=== PATIENT | male | born 1940 | race Caucasian/White ===

== ENCOUNTER 2019-01-08 13:04 | Observation (INO) | payer MEDICARE ==
[~2019-01-08] VITALS: Ht 177.8 cm; Wt 83.9 kg
[2019-01-08] MEDS ORDERED: NITROGLYCERIN SUBLINGUAL 0.4 MG BOTTLE OF 25. SL STA (13:52)
--- NOTE | 2019-01-08 13:53 | EKG ---
[facility] [address] [place] [address] Test Date: 2019-01-08 Test Time: 13:14:03 Pat Name: MATTHEW ROBERTS Department: Room: Gender: M Dike Supervisor: TOMASZ : 1940 Requested By: KINGSLEY WHITTINGTON Order Number: [id number] Reading MD: Measurements Intervals Friendly Rate: 77 P: 52 TN: 174 QRS: -34 QRSD: 82 T: 14 QT: 394 QTc: 448 Interpretive Statements SINUS RHYTHM ATRIAL PREMATURE COMPLEX(ES) ABNORMAL LEFT AXIS DEVIATION QRS(T) CONTOUR ABNORMALITY CONSISTENT WITH ANTEROSEPTAL INFARCT PROBABLY OLD ABNORMAL ECG RI6.01 No previous ECG available for comparison
--- NOTE | 2019-01-08 13:54 | PHYS DOC ---
Past Medical History Past Medical History: CAD, COPD, GERD, High Cholesterol Additional Past Medical Histor: BPH Additional Past Surgical Histo: VALVE REPLACEMENT Alcohol Use: Rarely Drug Use: None Adult General Chief Complaint Chief Complaint: CHEST PAIN HPI HPI Patient is a 78 year old male patient with history of coronary artery disease, COPD and dyslipidemia who presents via EMS with complaining of chest pain. Patient complaining of sudden onset of lower substernal and epigastric pain that started while playing golf about an over prior to arrival to ER as a constant aching pain without radiation and rated his pain 2/10. Patient complaining of chronic shortness of breath without new change and nausea without vomiting. Patient denies palpitation, fever and chills, cough and congestion, dizziness and focal neurodeficit. Patient had 320 deformity of aspirin given by EMS. Review of Systems Review of Systems Constitutional: Denies fever or chills [] Eyes: Denies change in visual acuity, redness, or eye pain [] HENT: Denies nasal congestion or sore throat [] Respiratory: Denies cough, reports shortness of breath [] Cardiovascular: No additional information not addressed in HPI [] GI: Denies abdominal pain, vomiting, bloody stools or diarrhea [] : Denies dysuria or hematuria [] Musculoskeletal: Denies back pain or joint pain [] Integument: Denies rash or skin lesions [] Neurologic: Denies headache, focal weakness or sensory changes [] Endocrine: Denies polyuria or polydipsia [] All other systems were reviewed and found to be within normal limits, except as documented in this note. Current Medications Current Medications Current Medications Medications (Trade) Dose Ordered Sig/[facility] Start Time Stop Time Status Last Admin Dose Admin Nitroglycerin (Nitrostat) 0.4 mg 1X STAT 01/08/19 13:52 01/08/19 14:56 DC Physical Exam Physical Exam Constitutional: Well developed, well nourished, no acute distress, non-toxic appearance. [] HENT: Normocephalic, atraumatic, bilateral external ears normal, oropharynx moist, no oral exudates, nose normal. [] Eyes: PERRLA, EOMI, conjunctiva normal, no discharge. [] Neck: Normal range of motion, no tenderness, supple, no stridor. [] Cardiovascular:Heart rate regular rhythm, no murmur [] Lungs & Thorax: Bilateral breath sounds clear to auscultation [] Abdomen: Bowel sounds normal, soft, no tenderness, no masses, no pulsatile masses. [] Skin: Warm, dry, no erythema, no rash. [] Back: No tenderness, no CVA tenderness. [] Extremities: No tenderness, no cyanosis, no clubbing, ROM intact, no edema. [] Neurologic: Alert and oriented X 3, normal motor function, normal sensory function, no focal deficits noted. [] Psychologic: Affect normal, judgement normal, mood normal. [] Current Patient Data Vital Signs Vital Signs Date Time Temp Pulse Resp B/P (MAP) Pulse Ox O2 Delivery O2 Flow Rate FiO2 01/08/19 13:04 97.7 81 36 161/102 (121) 93 Room Air 97.7 Lab Values Laboratory Tests Test 01/08/19 14:00 White Blood Count 9.0 x10^3/uL (4.0-11.0) Red Blood Count 4.61 x10^6/uL (4.30-5.70) Hemoglobin 15.2 g/dL (13.0-17.5) Hematocrit 44.2 % (39.0-53.0) Mean Corpuscular Volume 96 fL (79-100) Mean Corpuscular Hemoglobin 33 pg (25-35) Mean Corpuscular Hemoglobin Concent 34 g/dL (31-37) Red Cell Distribution Width 13.7 % (11.5-14.5) Platelet Count 159 x10^3/uL (140-400) Neutrophils (%) (Auto) 81 % (31-73) H Lymphocytes (%) (Auto) 10 % (24-48) L Monocytes (%) (Auto) 8 % (0-9) Eosinophils (%) (Auto) 1 % (0-3) Basophils (%) (Auto) 1 % (0-3) Neutrophils # (Auto) 7.3 x10^3/uL (1.8-7.7) Lymphocytes # (Auto) 0.9 x10^3/uL (1.0-4.8) L Monocytes # (Auto) 0.7 x10^3/uL (0.0-1.1) Eosinophils # (Auto) 0.1 x10^3/uL (0.0-0.7) Basophils # (Auto) 0.1 x10^3/uL (0.0-0.2) Prothrombin Time 13.6 SEC (11.7-14.0) Prothrombin Time INR 1.1 (0.8-1.1) Laboratory Tests 01/08/19 14:00 EKG EKG EKG interpreted by me. EKG at 1314 showed normal sinus rhythm at rate of 77 with PVCs, abnormal left axis deviation, normal UT and QT intervals, poor R-wave progress in anteroseptal leads, no acute ST and T-wave elevation. Radiology/Procedures Radiology/Procedures [facility] [address] [place] [address] IMAGING REPORT Signed PATIENT: MATTHEW ROBERTS ACCOUNT: [id number] : 1940 LOCATION: ER AGE: 78 SEX: M EXAM STATUS: REG ER ORD. PHYSICIAN: KINGSLEY WHITTINGTON MD REASON: chest pain PROCEDURE: PORTABLE CHEST 1V EXAM: Chest, single view. HISTORY: Chest pain. COMPARISON: None. FINDINGS: A frontal view of the chest is obtained. There is increased opacity within the lateral right upper and mid thorax which may be due to pleural plaque or pleural parenchymal scarring. The superimposed on chronic coarse interstitial changes. No pleural effusion or pneumothorax is seen. The heart is normal in size. There is evidence of prior cardiac valve surgery. There are calcified granulomas. IMPRESSION: Lateral right upper and mid thorax opacity possibly due to pleural plaque or pleural parenchymal scarring. The superimposed on suspected chronic interstitial changes. Correlate with prior studies to exclude an underlying pleural-based mass or pneumonic infiltrate. Electronically signed by: Nimisha Fairchild MD (01/08/2019 2:16 PM) [facility] DICTATED and SIGNED BY: NIMISHA FAIRCHILD MD DATE: 01/08/19 [id number] [place] [address] IMAGING REPORT Signed PATIENT: MATTHEW ROBERTS ACCOUNT: [id number] : 1940 LOCATION: ER AGE: 78 SEX: M EXAM STATUS: REG ER ORD. PHYSICIAN: KINGSLEY WHITTINGTON MD REASON: epigastric pain PROCEDURE: ABDOMEN LTD EXAM: Abdomen sonogram. HISTORY: Epigastric pain. TECHNIQUE: Sonographic imaging of the abdomen was performed. COMPARISON: None. FINDINGS: The liver is normal in size. No focal hepatic lesion is seen. There is suspected hepatic steatosis. The gallbladder is unremarkable. The common bile duct is normal in caliber. The right kidney is normal in size. There is a single right renal cyst measuring 4.4 cm. There is echogenic right renal parenchyma, possibly due to imaging technique or medical renal disease. The pancreas and inferior vena cava are unremarkable. IMPRESSION: 1. Slightly echogenic liver parenchyma. This may be due to imaging technique or steatosis. 2. Echogenic right kidney, also possibly due to technique or medical renal disease. 3. 4.4 cm right renal cyst. Electronically signed by: Nimisha Fairchild MD (01/08/2019 2:36 PM) [place] [id number] DICTATED and SIGNED BY: NIMISHA FAIRCHILD MD DATE: 01/08/19 1438 Course & Med Decision Making Course & Med Decision Making Pertinent Labs and Imaging studies reviewed. (See chart for details) Evaluation of patient in ER showed 78-year-old male patient with heart score of 6 with complaining of exertional chest and epigastric pain as a mild pain. Patient did not want to have pain medication in ER. Labs was unremarkable. Gallbladder ultrasound was negative. Patient requiring admission for further evaluation and treatment. Discussed with Dr. Ruiz who is in agreement with admission. Discussed findings and plan with patient and family, who acknowledge understanding and agreement. Dragon Disclaimer Dragon Disclaimer This electronic medical record was generated, in whole or in part, using a voice recognition dictation system. Departure Departure Impression: Primary Impression: Acute chest pain Disposition: ADMITTED INPATIENT (at 1432) Admitting Physician: SIOMARA (Dr. Ruiz accepted admission at 1431) Condition: IMPROVED Referrals: CHAD DUBOSE MD (PCP) The HEART Score for CP Pts HEART Score for Chest Pain: HEART Score for Chest Pain Response (Comments) Value History Moderately Suspicious 1 ECG Nonspecific Repolarizatio 1 Age > 65 2 Risk Factors >3 Risk Factors or Hx CAD 2 Troponin < Normal Limit 0 Total 6 Risk Factors: Risk Factors: DM, Current or recent (<one month) smoker, HTN, HLP, family history of CAD, obesity. Risk Scores: Score 0 - 3: 2.5% MACE over next 6 weeks - Discharge Home Score 4 - 6: 20.3% MACE over next 6 weeks - Admit for Clinical Observation Score 7 - 10: 72.7% MACE over next 6 weeks - Early Invasive Strategies KINGSLEY WHITTINGTON MD Jan 08, 2019 13:54
[2019-01-08 14:10] LABS: BASO # 0.1 x10^3/uL (0.0-0.2); BASO % 1 % (0-3); EOS # 0.1 x10^3/uL (0.0-0.7); EOS % 1 % (0-3); HEMATOCRIT 44.2 % (39.0-53.0); HEMOGLOBIN 15.2 g/dL (13.0-17.5); LYMPH # 0.9 x10^3/uL (1.0-4.8); LYMPH % 10 % (24-48); MEAN CORPUSCULAR HEMOGLOBIN 33 pg (25-35); MEAN CORPUSCULAR HGB CONC 34 g/dL (31-37); MEAN CORPUSCULAR VOLUME 96 fL (79-100); MONO # 0.7 x10^3/uL (0.0-1.1); MONO % 8 % (0-9); NEUT # 7.3 x10^3/uL (1.8-7.7); NEUT % 81 % (31-73); PLATELET COUNT 159 x10^3/uL (140-400); RED BLOOD COUNT 4.61 x10^6/uL (4.30-5.70); RED CELL DISTRIBUTION WIDTH 13.7 % (11.5-14.5)
[2019-01-08 14:19] LABS: PROTHROMBIN TIME PATIENT 13.6 SEC (11.7-14.0)
--- NOTE | 2019-01-08 14:19 | RAD ---
EXAM: Chest, single view. HISTORY: Chest pain. COMPARISON: None. FINDINGS: A frontal view of the chest is obtained. There is increased opacity within the lateral right upper and mid thorax which may be due to pleural plaque or pleural parenchymal scarring. The superimposed on chronic coarse interstitial changes. No pleural effusion or pneumothorax is seen. The heart is normal in size. There is evidence of prior cardiac valve surgery. There are calcified granulomas. IMPRESSION: Lateral right upper and mid thorax opacity possibly due to pleural plaque or pleural parenchymal scarring. The superimposed on suspected chronic interstitial changes. Correlate with prior studies to exclude an underlying pleural-based mass or pneumonic infiltrate. Electronically signed by: Nimisha Fulton MD (01/08/2019 2:16 PM) [place] [id number]
--- NOTE | 2019-01-08 14:39 | RAD ---
EXAM: Abdomen sonogram. HISTORY: Epigastric pain. TECHNIQUE: Sonographic imaging of the abdomen was performed. COMPARISON: None. FINDINGS: The liver is normal in size. No focal hepatic lesion is seen. There is suspected hepatic steatosis. The gallbladder is unremarkable. The common bile duct is normal in caliber. The right kidney is normal in size. There is a single right renal cyst measuring 4.4 cm. There is echogenic right renal parenchyma, possibly due to imaging technique or medical renal disease. The pancreas and inferior vena cava are unremarkable. IMPRESSION: 1. Slightly echogenic liver parenchyma. This may be due to imaging technique or steatosis. 2. Echogenic right kidney, also possibly due to technique or medical renal disease. 3. 4.4 cm right renal cyst. Electronically signed by: Nimisha Fulton MD (01/08/2019 2:36 PM) [facility]
[2019-01-08 15:22] LABS: CALCIUM 9.1 mg/dL (8.5-10.1); CREATININE 1.1 mg/dL (0.7-1.3); GFR 64.9; POTASSIUM 3.9 mmol/L (3.5-5.1)
[2019-01-08 15:30] LABS: ALBUMIN 4.2 g/dL (3.4-5.0); MAGNESIUM 1.8 mg/dL (1.8-2.4); TOTAL BILIRUBIN 1.3 mg/dL (0.2-1.0); TOTAL PROTEIN 8.3 g/dL (6.4-8.2)
[2019-01-08 16:00] VITALS: BP 153/108
[2019-01-08] MEDS ORDERED: ALPRAZolam 0.25 MG TABLET PO ONE (16:15)
[2019-01-08] MEDS ORDERED: ALPRAZolam 0.25 MG TABLET PO PRN (16:15)
--- NOTE | 2019-01-08 16:15 | NUR ---
The patient, MATTHEW ROBERTS, 78 y/o, M admitted by MALU MADISON MD, was given written information regarding hospital policies, unit procedures and contact persons. Valuables were checked and kept in room with patient. Pt arrived to unit via gurney from ED. Pt ambulated to bed. Daughter at bedside. Pt on room air, VSS. No complaints of chest pain or SOB at this time. Call light within reach. Will continue to monitor.
--- NOTE | 2019-01-08 16:16 | PDOC1 ---
History and Physical Date of Admission Date of Admission DATE: 01/08/19 TIME: 16:09 Source Source: Chart review, Patient History of Present Illness History of Present Illness Mr. Rodríguez, is a 78 year old male patient admit from ER, brought via EMS with complaining of chest pain. He was on the golf [place] today, and sudden onset of lower substernal and epigastric pain and now a constant aching pain about 4/10 pain does not radiate, but he explains he has felt more agitated since he arrived. Patient complaining of chronic shortness of breath, hx COPD, no change in sputum or dyspnea. Patient denies palpitation, fever and chills, cough and congestion, dizziness and focal neurodeficit. Past Medical History Past Medical History coronary artery disease, COPD and dyslipidemia Cardiovascular: CAD, HTN Pulmonary: COPD Musculoskeletal: low back pain Rheumatologic: No pertinent hx Infectious disease: No pertinent hx Social History Smoke: Quit (20 years ago) ALCOHOL: rare Drugs: None Current Problem List Problem List Problems Medical Problems: (1) Acute chest pain Status: Acute Current Medications Current Medications Current Medications Nitroglycerin (Nitrostat) 0.4 mg 1X STAT SL ; Start 01/08/19 at 13:52; Stop 01/08/19 at 14:56; Status DC Alprazolam (Xanax) 0.25 mg 1X ONCE PO ; Start 01/08/19 at 16:15; Stop 01/08/19 at 16:16; Status UNV Alprazolam (Xanax) 0.25 mg PRN Q8HRS PRN PO ANXIETY / AGITATION; Start 01/08/19 at 16:15; Status UNV Allergies Allergies: Coded Allergies: No Known Drug Allergies (Unverified , 01/08/19) ROS General: No: Chills, Night Sweats, Fatigue, Malaise, Appetite, Other PSYCHOLOGICAL ROS: YES: Anxiety, Irritablity; No: Behavioral Disorder, Concentration difficultie, Decreased libido, Depression, Disorientation, Hallucinations, Hostility, Memory difficulties, Mood Swings, Obsessive thoughts, Other Eyes: No Blurry vision, No Decreased vision, No Double vision, No Dry eyes, No Excessive tearing, No Eye Pain, No Itchy Eyes, No Loss of vision, No Photophobia, No Scotomata, No Uses contacts, No Uses glasses, No Other HEENT: No: Heacaches, Visual Changes, Hearing change, Nasal congestion, Nasal discharge, Oral lesions, Sinus pain, Sore Throat, Epistaxis, Sneezing, Snoring, Tinnitus, Vertigo, Vocal changes, Other Respiratory: No: Cough, Hemoptysis, Orthopnea, Pleuritic Pain, Shortness of breath, SOB with excertion, Sputum Changes, Stridor, Tachypnea, Wheezing, Other Cardiovascular: yes Chest Pain (maybe); No Palpitations, No Orthopnea, No Paroxysmal Noc. Dyspnea, No Edema, No Lt Headedness, No Other Gastrointestinal: Yes Abdominal Pain; No Nausea, No Vomiting, No Diarrhea, No Constipation, No Melena, No Hematochezia, No Other Genitourinary: No Dysuria, No Frequency, No Incontinence, No Hematuria, No Retention, No Discharge, No Urgency, No Pain, No Flank Pain, No Other, No , No , No , No , No , No , No Musculoskeletal: Yes Joint Stiffness; No Gait Disturbance, No Joint Pain, No Joint Swelling, No Muscle Pain, No Muscular Weakness, No Pain In:, No Swelling In:, No Other Neurological: No Behavorial Changes, No Bowel/Bladder ControlChng, No Confusion, No Dizziness, No Gait Disturbance, No Headaches, No Impaired Coord/balance, No Memory Loss, No Numbness/Tingling, No Seizures, No Speech Problems, No Tremors, No Visual Changes, No Weakness, No Other Skin: Yes Dry Skin; No Eczema, No Hair Changes, No Lumps, No Mole Changes, No Mottling, No Nail Changes, No Pruritus, No Rash, No Skin Lesion Changes, No Other, No Acne Physical Exam General: Alert, Oriented X3, Cooperative, mild distress HEENT: Atraumatic, PERRLA, Mucous membr. moist/pink Lungs: Clear to auscultation, Normal air movement Heart: S1S2, no gallops Abdomen: Normal bowel sounds, Soft, No tenderness, No hepatosplenomegaly, No masses Extremities: No clubbing, No edema, Normal pulses Skin: No rashes, No breakdown Neuro: Normal gait, Normal speech, Sensation intact Psych/Mental Status: Mental status NL, Mood NL Vitals Vitals Vital Signs Date Time Temp Pulse Resp B/P (MAP) Pulse Ox O2 Delivery O2 Flow Rate FiO2 01/08/19 13:04 97.7 81 36 161/102 (121) 93 Room Air 97.7 Labs Labs Laboratory Tests Test 01/08/19 14:00 01/08/19 15:00 White Blood Count 9.0 x10^3/uL (4.0-11.0) Red Blood Count 4.61 x10^6/uL (4.30-5.70) Hemoglobin 15.2 g/dL (13.0-17.5) Hematocrit 44.2 % (39.0-53.0) Mean Corpuscular Volume 96 fL (79-100) Mean Corpuscular Hemoglobin 33 pg (25-35) Mean Corpuscular Hemoglobin Concent 34 g/dL (31-37) Red Cell Distribution Width 13.7 % (11.5-14.5) Platelet Count 159 x10^3/uL (140-400) Neutrophils (%) (Auto) 81 % (31-73) Lymphocytes (%) (Auto) 10 % (24-48) Monocytes (%) (Auto) 8 % (0-9) Eosinophils (%) (Auto) 1 % (0-3) Basophils (%) (Auto) 1 % (0-3) Neutrophils # (Auto) 7.3 x10^3/uL (1.8-7.7) Lymphocytes # (Auto) 0.9 x10^3/uL (1.0-4.8) Monocytes # (Auto) 0.7 x10^3/uL (0.0-1.1) Eosinophils # (Auto) 0.1 x10^3/uL (0.0-0.7) Basophils # (Auto) 0.1 x10^3/uL (0.0-0.2) Prothrombin Time 13.6 SEC (11.7-14.0) Prothromb Time International Ratio 1.1 (0.8-1.1) Sodium Level 140 mmol/L (136-145) Potassium Level 3.9 mmol/L (3.5-5.1) Chloride Level 103 mmol/L (98-107) Carbon Dioxide Level 23 mmol/L (21-32) Anion Gap 14 (6-14) Blood Urea Nitrogen 18 mg/dL (8-26) Creatinine 1.1 mg/dL (0.7-1.3) Estimated GFR (Cockcroft-Gault) 64.9 BUN/Creatinine Ratio 16 (6-20) Glucose Level 93 mg/dL (70-99) Calcium Level 9.1 mg/dL (8.5-10.1) Magnesium Level 1.8 mg/dL (1.8-2.4) Total Bilirubin 1.3 mg/dL (0.2-1.0) Aspartate Amino Transf (AST/SGOT) 37 U/L (15-37) Alanine Aminotransferase (ALT/SGPT) 28 U/L (16-63) Alkaline Phosphatase 112 U/L (46-116) Creatine Kinase 505 U/L (39-308) Troponin I Quantitative < 0.017 ng/mL (0.000-0.055) KU-Crx-I-Type Natriuretic Peptide 244 pg/mL (0-449) Total Protein 8.3 g/dL (6.4-8.2) Albumin 4.2 g/dL (3.4-5.0) Albumin/Globulin Ratio 1.0 (1.0-1.7) Lipase 148 U/L (73-393) Laboratory Tests Test 01/08/19 14:00 01/08/19 15:00 White Blood Count 9.0 x10^3/uL (4.0-11.0) Red Blood Count 4.61 x10^6/uL (4.30-5.70) Hemoglobin 15.2 g/dL (13.0-17.5) Hematocrit 44.2 % (39.0-53.0) Mean Corpuscular Volume 96 fL (79-100) Mean Corpuscular Hemoglobin 33 pg (25-35) Mean Corpuscular Hemoglobin Concent 34 g/dL (31-37) Red Cell Distribution Width 13.7 % (11.5-14.5) Platelet Count 159 x10^3/uL (140-400) Neutrophils (%) (Auto) 81 % (31-73) Lymphocytes (%) (Auto) 10 % (24-48) Monocytes (%) (Auto) 8 % (0-9) Eosinophils (%) (Auto) 1 % (0-3) Basophils (%) (Auto) 1 % (0-3) Neutrophils # (Auto) 7.3 x10^3/uL (1.8-7.7) Lymphocytes # (Auto) 0.9 x10^3/uL (1.0-4.8) Monocytes # (Auto) 0.7 x10^3/uL (0.0-1.1) Eosinophils # (Auto) 0.1 x10^3/uL (0.0-0.7) Basophils # (Auto) 0.1 x10^3/uL (0.0-0.2) Prothrombin Time 13.6 SEC (11.7-14.0) Prothromb Time International Ratio 1.1 (0.8-1.1) Sodium Level 140 mmol/L (136-145) Potassium Level 3.9 mmol/L (3.5-5.1) Chloride Level 103 mmol/L (98-107) Carbon Dioxide Level 23 mmol/L (21-32) Anion Gap 14 (6-14) Blood Urea Nitrogen 18 mg/dL (8-26) Creatinine 1.1 mg/dL (0.7-1.3) Estimated GFR (Cockcroft-Gault) 64.9 BUN/Creatinine Ratio 16 (6-20) Glucose Level 93 mg/dL (70-99) Calcium Level 9.1 mg/dL (8.5-10.1) Magnesium Level 1.8 mg/dL (1.8-2.4) Total Bilirubin 1.3 mg/dL (0.2-1.0) Aspartate Amino Transf (AST/SGOT) 37 U/L (15-37) Alanine Aminotransferase (ALT/SGPT) 28 U/L (16-63) Alkaline Phosphatase 112 U/L (46-116) Creatine Kinase 505 U/L (39-308) Troponin I Quantitative < 0.017 ng/mL (0.000-0.055) ZN-Mxf-B-Type Natriuretic Peptide 244 pg/mL (0-449) Total Protein 8.3 g/dL (6.4-8.2) Albumin 4.2 g/dL (3.4-5.0) Albumin/Globulin Ratio 1.0 (1.0-1.7) Lipase 148 U/L (73-393) VTE Prophylaxis Ordered VTE Prophylaxis Devices: No VTE Pharmacological Prophylaxi: Yes Assessment/Plan Assessment/Plan acute abd pain r/o ACS, no EKG change, first troponin neg, 325 aspirin given by EMS abd pain , epigastric, he reports a remote history of "colon spasm" with acute pain 30 years ago, just one time. consult CV and GI he reports high level of anxiety, and has tachypnea without dyspnea. will try low dose xanax COPD, nebs, stable MALU MADISON MD Jan 08, 2019 16:16
[2019-01-08] MEDS ORDERED: ENOXAPARIN 40 MG/0.4 ML SYRINGE. SQ SCH (16:30)
[2019-01-08] MEDS ORDERED: AMLO5TAB10 PO (17:06)
[2019-01-08] MEDS ORDERED: VENTOLIN HFA18 GM INH (17:06)
[2019-01-08] MEDS ORDERED: PANT20TA2 PO (17:06)
[2019-01-08] MEDS ORDERED: CHOL10003 PO (17:06)
[2019-01-08] MEDS ORDERED: PRAV40TA2 PO (17:06)
[2019-01-08] MEDS ORDERED: MONT10TA49 PO (17:06)
[2019-01-08] MEDS ORDERED: FLUT1DIS3 IH (17:06)
[2019-01-08] MEDS ORDERED: CLOP75TA PO (17:06)
[2019-01-08] MEDS ORDERED: TAMS0.4C97 PO (17:06)
[2019-01-08] MEDS ORDERED: ASPI-630 PO (17:06)
[2019-01-08] MEDS ORDERED: ESZO3TAB28 PO (17:06)
[2019-01-08] MEDS ORDERED: ACLI400A3 IH (17:06)
[2019-01-08] MEDS ORDERED: MELO15TA23 PO (17:06)
[2019-01-08] MEDS ORDERED: FINA5TAB4 PO (17:06)
[2019-01-08] MEDS ORDERED: ZOLPIDEM 5 MG TABLET. PO PRN ×2 (18:00)
[2019-01-08] MEDS ORDERED: ALBUTEROL SULFATE 2.5 MG/3 ML NEBU. NEB PRN (18:00)
[2019-01-08 18:58] VITALS: BP 128/83
[2019-01-08] MEDS ORDERED: IPRATRPIUM/ALBUTEROL 0.5/2.5MG 3 ML NEBU. NEB SCH (20:00)
[2019-01-08] MEDS ORDERED: NON FORMULARY ITEM (Albuterol Sulfate (Ventolin Hfa Inhaler) 2 PUFF) INH SCH (20:00)
[2019-01-08] MEDS: BUDESONIDE 0.5 MG/2 ML NEBU. NEB SCH (20:09)
[2019-01-08] MEDS: IPRATRPIUM/ALBUTEROL 0.5/2.5MG 3 ML NEBU. NEB SCH (20:09)
[2019-01-08] MEDS ORDERED: MONTELUKAST SODIUM 10 MG TABLET. PO SCH (21:00)
[2019-01-08] MEDS ORDERED: NON FORMULARY ITEM (Pravastatin Sodium 1 TAB) PO SCH (21:00)
[2019-01-08] MEDS ORDERED: NON FORMULARY ITEM (Fluticasone/Salmeterol (Advair 250-50 Diskus) 1 PUFF) IH SCH (21:00)
[2019-01-08] MEDS ORDERED: ACLIDINIUM BROMIDE IH SCH (21:00)
[2019-01-08] MEDS ORDERED: ATORVASTATIN CALCIUM 10 MG TABLET. PO SCH (21:00)
[2019-01-08] MEDS: TAMSULOSIN 0.4 MG CAP.ER.24H. PO SCH (21:09)
[2019-01-08] MEDS: FINASTERIDE 5 MG TABLET. PO SCH (21:09)
[2019-01-08] MEDS: ASPIRIN CHEWABLE 81 MG TABLET. PO SCH (21:10)
[2019-01-08 23:11] VITALS: BP 125/77
[2019-01-09 03:05] VITALS: BP 118/70
[2019-01-09 04:28] LABS: BASO % 1 % (0-3); EOS # 0.2 x10^3/uL (0.0-0.7); EOS % 4 % (0-3); HEMATOCRIT 40.9 % (39.0-53.0); HEMOGLOBIN 14.2 g/dL (13.0-17.5); LYMPH # 1.6 x10^3/uL (1.0-4.8); LYMPH % 30 % (24-48); MEAN CORPUSCULAR HEMOGLOBIN 33 pg (25-35); MEAN CORPUSCULAR HGB CONC 35 g/dL (31-37); MEAN CORPUSCULAR VOLUME 95 fL (79-100); MONO # 0.7 x10^3/uL (0.0-1.1); MONO % 13 % (0-9); NEUT % 53 % (31-73); PLATELET COUNT 143 x10^3/uL (140-400); RED CELL DISTRIBUTION WIDTH 13.9 % (11.5-14.5); WHITE BLOOD COUNT 5.6 x10^3/uL (4.0-11.0)
[2019-01-09 05:02] LABS: ALBUMIN 3.1 g/dL (3.4-5.0); ALBUMIN/GLOBULIN RATIO 0.8 (1.0-1.7); CALCIUM 8.1 mg/dL (8.5-10.1); CREATININE 1.1 mg/dL (0.7-1.3); GFR 64.9; POTASSIUM 3.9 mmol/L (3.5-5.1); TOTAL BILIRUBIN 0.8 mg/dL (0.2-1.0); TOTAL PROTEIN 6.9 g/dL (6.4-8.2)
[2019-01-09 05:03] LABS: CHOLESTEROL/HDL RATIO 2.9
[2019-01-09 07:00] VITALS: BP 138/78
[2019-01-09] MEDS ORDERED: PANTOPRAZOLE 40 MG TABLET.DR. PO SCH (07:30)
[2019-01-09] MEDS: IPRATRPIUM/ALBUTEROL 0.5/2.5MG 3 ML NEBU. NEB SCH ×2 (07:46→11:03)
[2019-01-09] MEDS: BUDESONIDE 0.5 MG/2 ML NEBU. NEB SCH (07:46)
--- NOTE | 2019-01-09 08:58 | PDOC2 ---
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 Reports that he was at the 15th hold at the [place] playing 4 man scramble and reports that his bad felt bubbly like unsettled then he became nauseated no vomiting. He finished the game and was riding carts for the most part. He went to his car and just did not feel good and was feeling weak and still has some na usea but no vomiting. Reports no chest pain, palpitations, arm or shoulder or jaw discomfort. He did say that he has history of spastic colon. To add he only ate a banana for breakfast because he was in a hurry. Denies any dizziness and no exertional CP nor RIVAS. Reports that he just saw his [facility] any commodity buyer Alissa and told him that he is doing well and his murmur is much better since he had his TAVR 6 months ago. He also had stent placed 03/2018. He has been doing cardiac rehab here and has been tolerating it. He also had a TTE recently but not sure when. No diarrhea, constipation and no fever or chills and no flank pain. PAST MEDICAL HISTORY Cardiovascular: CAD, HTN, Hyperlipidemia Pulmonary: COPD CENTRAL NERVOUS SYSTEM: Other (No pertinent history) GI: GERD, Other (spastic colon) Heme/Onc: No pertinent hx Hepatobiliary: Cholelithiasis Psych: No pertinent hx Musculoskeletal: Osteoarthritis Rheumatologic: No pertinent hx Infectious disease: No pertinent hx ENT: Allergic Rhinitis Renal/: No pertinent hx Endocrine: No pertinent hx Dermatology: No pertinent hx PAST SURGICAL HISTORY Past Surgical History: Cholecystectomy, Other (PCI/stent; TAVR) FAMILY HISTORY Family History noncontributory SOCIAL HISTORY Smoke: Quit (remotely) ALCOHOL: rare Drugs: None Lives: with Family CURRENT MEDICATIONS CURRENT MEDICATIONS Current Medications Medications (Trade) Dose Ordered Sig/Jean Paul Route PRN Reason Start Time Stop Time Status Last Admin Dose Admin Alprazolam (Xanax) 0.25 mg 1X ONCE PO 01/08/19 16:15 01/08/19 16:18 DC 01/08/19 18:18 Montelukast Sodium (Singulair) 10 mg HS PO 01/08/19 21:00 01/08/19 21:09 Pantoprazole Sodium (Protonix) 40 mg DAILYAC PO 01/09/19 07:30 01/09/19 07:58 Zolpidem Tartrate (Ambien) 5 mg PRN QHS PRN PO INSOMNIA 01/08/19 18:00 01/08/19 23:02 Atorvastatin Calcium (Lipitor) 10 mg QHS PO 01/08/19 21:00 01/08/19 21:10 Albuterol/ Ipratropium (Duoneb) 3 ml RTQID NEB 01/08/19 20:00 01/09/19 07:46 Budesonide (Pulmicort) 0.5 mg RTBID NEB 01/08/19 20:00 01/09/19 07:46 Aspirin (Children'S Aspirin) 81 mg DAILY PO 01/08/19 20:00 01/08/19 21:10 Finasteride (Proscar) 5 mg DAILY PO 01/08/19 20:00 01/08/19 21:09 Tamsulosin HCl (Flomax) 0.4 mg DAILY PO 01/08/19 20:00 01/08/19 21:09 ALLERGIES ALLERGIES: Coded Allergies: No Known Drug Allergies (Unverified , 01/08/19) ROS Review of System 14 point ROS evaluated with pertinent positives noted per HPI PHYSICAL EXAM General: Alert, Oriented X3, Cooperative, No acute distress HEENT: Atraumatic, Mucous membr. moist/pink Lungs: Clear to auscultation, Normal air movement Heart: Regular rate (SR), Normal S1, Normal S2, Other (3/6 systolic murmur to THUAN border) Abdomen: Soft, No tenderness Extremities: No cyanosis, Other (trace LE edema) Skin: No breakdown, No significant lesion Neuro: Normal speech, Sensation intact Psych/Mental Status: Mental status NL, Mood NL MUSCULOSKELETAL: Osteoarthritic changes both hands VITALS/I&O VITALS/I&O: Vital Signs Date Time Temp Pulse Resp B/P (MAP) Pulse Ox O2 Delivery O2 Flow Rate FiO2 01/09/19 07:48 93 Room Air 01/09/19 07:00 97.8 73 138/78 (98) 97.8 01/08/19 23:11 20 I & O 01/08/19 01/08/19 01/09/19 15:00 23:00 07:00 Intake Total 400 ml 200 ml Balance 400 ml 200 ml LABS Lab: Laboratory Tests Test 01/08/19 14:00 01/08/19 15:00 01/08/19 18:08 01/08/19 22:35 White Blood Count 9.0 x10^3/uL (4.0-11.0) Red Blood Count 4.61 x10^6/uL (4.30-5.70) Hemoglobin 15.2 g/dL (13.0-17.5) Hematocrit 44.2 % (39.0-53.0) Mean Corpuscular Volume 96 fL (79-100) Mean Corpuscular Hemoglobin 33 pg (25-35) Mean Corpuscular Hemoglobin Concent 34 g/dL (31-37) Red Cell Distribution Width 13.7 % (11.5-14.5) Platelet Count 159 x10^3/uL (140-400) Neutrophils (%) (Auto) 81 % (31-73) H Lymphocytes (%) (Auto) 10 % (24-48) L Monocytes (%) (Auto) 8 % (0-9) Eosinophils (%) (Auto) 1 % (0-3) Basophils (%) (Auto) 1 % (0-3) Neutrophils # (Auto) 7.3 x10^3/uL (1.8-7.7) Lymphocytes # (Auto) 0.9 x10^3/uL (1.0-4.8) L Monocytes # (Auto) 0.7 x10^3/uL (0.0-1.1) Eosinophils # (Auto) 0.1 x10^3/uL (0.0-0.7) Basophils # (Auto) 0.1 x10^3/uL (0.0-0.2) Prothrombin Time 13.6 SEC (11.7-14.0) Prothrombin Time INR 1.1 (0.8-1.1) Sodium Level 140 mmol/L (136-145) Potassium Level 3.9 mmol/L (3.5-5.1) Chloride Level 103 mmol/L (98-107) Carbon Dioxide Level 23 mmol/L (21-32) Anion Gap 14 (6-14) Blood Urea Nitrogen 18 mg/dL (8-26) Creatinine 1.1 mg/dL (0.7-1.3) Estimated GFR (Cockcroft-Gault) 64.9 BUN/Creatinine Ratio 16 (6-20) Glucose Level 93 mg/dL (70-99) Calcium Level 9.1 mg/dL (8.5-10.1) Magnesium Level 1.8 mg/dL (1.8-2.4) Total Bilirubin 1.3 mg/dL (0.2-1.0) H Aspartate Amino Transferase (AST) 37 U/L (15-37) Alanine Aminotransferase (ALT) 28 U/L (16-63) Alkaline Phosphatase 112 U/L (46-116) Creatine Kinase 505 U/L (39-308) H Troponin I Quantitative < 0.017 ng/mL (0.000-0.055) < 0.017 ng/mL (0.000-0.055) < 0.017 ng/mL (0.000-0.055) FV-Llv-Y-Type Natriuretic Peptide 244 pg/mL (0-449) Total Protein 8.3 g/dL (6.4-8.2) H Albumin 4.2 g/dL (3.4-5.0) Albumin/Globulin Ratio 1.0 (1.0-1.7) Lipase 148 U/L (73-393) Test 01/09/19 03:50 White Blood Count 5.6 x10^3/uL (4.0-11.0) Red Blood Count 4.30 x10^6/uL (4.30-5.70) Hemoglobin 14.2 g/dL (13.0-17.5) Hematocrit 40.9 % (39.0-53.0) Mean Corpuscular Volume 95 fL (79-100) Mean Corpuscular Hemoglobin 33 pg (25-35) Mean Corpuscular Hemoglobin Concent 35 g/dL (31-37) Red Cell Distribution Width 13.9 % (11.5-14.5) Platelet Count 143 x10^3/uL (140-400) Neutrophils (%) (Auto) 53 % (31-73) Lymphocytes (%) (Auto) 30 % (24-48) Monocytes (%) (Auto) 13 % (0-9) H Eosinophils (%) (Auto) 4 % (0-3) H Basophils (%) (Auto) 1 % (0-3) Neutrophils # (Auto) 3.0 x10^3/uL (1.8-7.7) Lymphocytes # (Auto) 1.6 x10^3/uL (1.0-4.8) Monocytes # (Auto) 0.7 x10^3/uL (0.0-1.1) Eosinophils # (Auto) 0.2 x10^3/uL (0.0-0.7) Basophils # (Auto) 0.0 x10^3/uL (0.0-0.2) Sodium Level 140 mmol/L (136-145) Potassium Level 3.9 mmol/L (3.5-5.1) Chloride Level 107 mmol/L (98-107) Carbon Dioxide Level 23 mmol/L (21-32) Anion Gap 10 (6-14) Blood Urea Nitrogen 19 mg/dL (8-26) Creatinine 1.1 mg/dL (0.7-1.3) Estimated GFR (Cockcroft-Gault) 64.9 BUN/Creatinine Ratio 17 (6-20) Glucose Level 91 mg/dL (70-99) Calcium Level 8.1 mg/dL (8.5-10.1) L Total Bilirubin 0.8 mg/dL (0.2-1.0) Aspartate Amino Transferase (AST) 27 U/L (15-37) Alanine Aminotransferase (ALT) 19 U/L (16-63) Alkaline Phosphatase 88 U/L (46-116) Total Protein 6.9 g/dL (6.4-8.2) Albumin 3.1 g/dL (3.4-5.0) L Albumin/Globulin Ratio 0.8 (1.0-1.7) L Triglycerides Level 71 mg/dL (0-150) Cholesterol Level 154 mg/dL (0-200) LDL Cholesterol, Calculated 86 mg/dL (0-100) VLDL Cholesterol, Calculated 14 mg/dL (0-40) Non-HDL Cholesterol Calculated 100 mg/dL (0-129) HDL Cholesterol 54 mg/dL (40-60) Cholesterol/HDL Ratio 2.9 Laboratory Tests 01/08/19 14:00 01/09/19 03:50 Laboratory Tests 01/08/19 15:00 01/09/19 03:50 ASSESSMENT/PLAN ASSESSMENT/PLAN 1. Abdominal pain/nausea: hx of spastic colon. Non cardiac 2. CAD; PCI/stent 03/2018. clinically stable. Trops nml no EKG changes 3. HTN: controlled 4. HLP: lipids controlled 5. Post TAVR: 6 months ago. [facility] 6. COPD: stable Recommendations 1. Continue secondary prevention. DAPT. Unclear about not having BB, will defer with [facility] cardiology. Continue amlodipine. 2. Recent TTE per pt, will try to obtain records 3. Still complains of pills getting stuck in his throat. EGD last yr. GI consult 4. Follow up with [facility] cardiology MARCUS STERLING MD 01/09/19 1702: CARDIAC CONSULT ASSESSMENT/PLAN ASSESSMENT/PLAN Patient seen and examined. Agree with above nurse practitioner note. 78-year-old man presented with abdominal pain. No significant cardiac issues. Ok to DC from CV standpoint. f/u with [facility] cardiology. WINSTON PERALES APRN Jan 09, 2019 08:58 MARCUS STERLING MD Jan 09, 2019 17:02
[2019-01-09] MEDS ORDERED: ASPIRIN CHEWABLE 81 MG TABLET. PO SCH (09:00)
[2019-01-09] MEDS ORDERED: amLODIPine BESYLATE 5 MG TABLET PO SCH (09:00)
[2019-01-09] MEDS ORDERED: TAMSULOSIN 0.4 MG CAP.ER.24H. PO SCH ×2 (09:00→21:00)
[2019-01-09] MEDS ORDERED: FINASTERIDE 5 MG TABLET. PO SCH (09:00)
[2019-01-09] MEDS: TAMSULOSIN 0.4 MG CAP.ER.24H. PO SCH (09:00)
[2019-01-09] MEDS ORDERED: CLOPIDOGREL BISULFATE 75 MG TABLET PO SCH (09:00)
[2019-01-09] MEDS ORDERED: MELOXICAM 7.5 MG TABLET PO SCH (09:00)
[2019-01-09] MEDS ORDERED: CHOLECALCIFEROL (VITAMIN D3) 1,000 UNIT TABLET PO SCH (09:00)
--- NOTE | 2019-01-09 09:41 | PDOC2 ---
GI CONSULT Reason For Consult: epigastric pain, h/o colon spasm HPI: HPI: Pleasant 78 y/o male who had some nausea and mid abdominal discomfort ("bubbling") yesterday while playing golf around [place] [employer]. "I couldn't tell if I was going to puke or poop." [place] worse, friends called an ambulance, admitted through ER. Symptoms resolved after two normal stools in ER. Currently feeling well and would like to eat breakfast and go home. Reports previous EGD at [facility] performed for abnormal swallowing - says only finding was GERD and he was started on pantoprazole 40mg QD. Then he had a "swallow test and the lady told me nothing was wrong." Then saw an ENT and was started on a nasal spray which might have helped a little. Plans to follow-up w/ ENT in a couple weeks. Does not have obvious heartburn or reflux. Pills (c apsules) and some solid foods get caught in upper throat - sometimes goes down w/ water, sometimes has to cough out. Does not occur daily. If he drinks water to fast he sometimes has issues getting that down too. No odynophagia. No n/v. No weight loss or change in appetite. No early satiety or bloating. No diarrhea or constipation (had a stool before playing golf too). No hematochezia or melena. No previous colonoscopy - "my doctor said I didn't have to because I was too old." No GB, liver, pancreas, or PUD history. Hepatic steatosis and normal GB on imaging as below. On Plavix, ASA, and Meloxicam. Recalls an incident 30 years ago where he went to the ER doubled over w/ abdominal pain - "they were about to take my gallbladder out but then said it was a colon spasm." PMH: PMH: CAD w/ stent, COPD, LUIS, HLD, BPH, allergic rhinitis AVR, uvulectomy, tonsillectomy, adenoidectomy Social History: Smoke: Quit ALCOHOL: none Drugs: None ROS: GEN: Denies fevers, chills, sweats HEENT: Denies blurred vision, sore throat CV: Denies chest pain RESP: Denies shortness of air, cough GI: Per HPI : Denies hematuria, dysuria ENDO: Denies weight changes NEURO: Denies confusion, dizziness MSK: Denies weakness, joint pain/swelling SKIN: Denies jaundice, pruritus Vitals: Vitals: Vital Signs Date Time Temp Pulse Resp B/P (MAP) Pulse Ox O2 Delivery O2 Flow Rate FiO2 01/09/19 07:48 93 Room Air 01/09/19 07:00 97.8 73 138/78 (98) 97.8 01/08/19 23:11 20 Labs: Labs: Laboratory Tests Test 01/08/19 14:00 01/08/19 15:00 01/08/19 18:08 01/08/19 22:35 White Blood Count 9.0 x10^3/uL (4.0-11.0) Red Blood Count 4.61 x10^6/uL (4.30-5.70) Hemoglobin 15.2 g/dL (13.0-17.5) Hematocrit 44.2 % (39.0-53.0) Mean Corpuscular Volume 96 fL (79-100) Mean Corpuscular Hemoglobin 33 pg (25-35) Mean Corpuscular Hemoglobin Concent 34 g/dL (31-37) Red Cell Distribution Width 13.7 % (11.5-14.5) Platelet Count 159 x10^3/uL (140-400) Neutrophils (%) (Auto) 81 % (31-73) Lymphocytes (%) (Auto) 10 % (24-48) Monocytes (%) (Auto) 8 % (0-9) Eosinophils (%) (Auto) 1 % (0-3) Basophils (%) (Auto) 1 % (0-3) Neutrophils # (Auto) 7.3 x10^3/uL (1.8-7.7) Lymphocytes # (Auto) 0.9 x10^3/uL (1.0-4.8) Monocytes # (Auto) 0.7 x10^3/uL (0.0-1.1) Eosinophils # (Auto) 0.1 x10^3/uL (0.0-0.7) Basophils # (Auto) 0.1 x10^3/uL (0.0-0.2) Prothrombin Time 13.6 SEC (11.7-14.0) Prothromb Time International Ratio 1.1 (0.8-1.1) Sodium Level 140 mmol/L (136-145) Potassium Level 3.9 mmol/L (3.5-5.1) Chloride Level 103 mmol/L (98-107) Carbon Dioxide Level 23 mmol/L (21-32) Anion Gap 14 (6-14) Blood Urea Nitrogen 18 mg/dL (8-26) Creatinine 1.1 mg/dL (0.7-1.3) Estimated GFR (Cockcroft-Gault) 64.9 BUN/Creatinine Ratio 16 (6-20) Glucose Level 93 mg/dL (70-99) Calcium Level 9.1 mg/dL (8.5-10.1) Magnesium Level 1.8 mg/dL (1.8-2.4) Total Bilirubin 1.3 mg/dL (0.2-1.0) Aspartate Amino Transf (AST/SGOT) 37 U/L (15-37) Alanine Aminotransferase (ALT/SGPT) 28 U/L (16-63) Alkaline Phosphatase 112 U/L (46-116) Creatine Kinase 505 U/L (39-308) Troponin I Quantitative < 0.017 ng/mL (0.000-0.055) < 0.017 ng/mL (0.000-0.055) < 0.017 ng/mL (0.000-0.055) QZ-Wea-V-Type Natriuretic Peptide 244 pg/mL (0-449) Total Protein 8.3 g/dL (6.4-8.2) Albumin 4.2 g/dL (3.4-5.0) Albumin/Globulin Ratio 1.0 (1.0-1.7) Lipase 148 U/L (73-393) Test 01/09/19 03:50 White Blood Count 5.6 x10^3/uL (4.0-11.0) Red Blood Count 4.30 x10^6/uL (4.30-5.70) Hemoglobin 14.2 g/dL (13.0-17.5) Hematocrit 40.9 % (39.0-53.0) Mean Corpuscular Volume 95 fL (79-100) Mean Corpuscular Hemoglobin 33 pg (25-35) Mean Corpuscular Hemoglobin Concent 35 g/dL (31-37) Red Cell Distribution Width 13.9 % (11.5-14.5) Platelet Count 143 x10^3/uL (140-400) Neutrophils (%) (Auto) 53 % (31-73) Lymphocytes (%) (Auto) 30 % (24-48) Monocytes (%) (Auto) 13 % (0-9) Eosinophils (%) (Auto) 4 % (0-3) Basophils (%) (Auto) 1 % (0-3) Neutrophils # (Auto) 3.0 x10^3/uL (1.8-7.7) Lymphocytes # (Auto) 1.6 x10^3/uL (1.0-4.8) Monocytes # (Auto) 0.7 x10^3/uL (0.0-1.1) Eosinophils # (Auto) 0.2 x10^3/uL (0.0-0.7) Basophils # (Auto) 0.0 x10^3/uL (0.0-0.2) Sodium Level 140 mmol/L (136-145) Potassium Level 3.9 mmol/L (3.5-5.1) Chloride Level 107 mmol/L (98-107) Carbon Dioxide Level 23 mmol/L (21-32) Anion Gap 10 (6-14) Blood Urea Nitrogen 19 mg/dL (8-26) Creatinine 1.1 mg/dL (0.7-1.3) Estimated GFR (Cockcroft-Gault) 64.9 BUN/Creatinine Ratio 17 (6-20) Glucose Level 91 mg/dL (70-99) Calcium Level 8.1 mg/dL (8.5-10.1) Total Bilirubin 0.8 mg/dL (0.2-1.0) Aspartate Amino Transf (AST/SGOT) 27 U/L (15-37) Alanine Aminotransferase (ALT/SGPT) 19 U/L (16-63) Alkaline Phosphatase 88 U/L (46-116) Total Protein 6.9 g/dL (6.4-8.2) Albumin 3.1 g/dL (3.4-5.0) Albumin/Globulin Ratio 0.8 (1.0-1.7) Triglycerides Level 71 mg/dL (0-150) Cholesterol Level 154 mg/dL (0-200) LDL Cholesterol, Calculated 86 mg/dL (0-100) VLDL Cholesterol, Calculated 14 mg/dL (0-40) Non-HDL Cholesterol Calculated 100 mg/dL (0-129) HDL Cholesterol 54 mg/dL (40-60) Cholesterol/HDL Ratio 2.9 Allergies: Coded Allergies: No Known Drug Allergies (Unverified , 01/08/19) Medications: Current Medications Medications (Trade) Dose Ordered Sig/Jean Paul Route PRN Reason Start Time Stop Time Status Last Admin Dose Admin Alprazolam (Xanax) 0.25 mg 1X ONCE PO 01/08/19 16:15 01/08/19 16:18 DC 01/08/19 18:18 Montelukast Sodium (Singulair) 10 mg HS PO 01/08/19 21:00 01/08/19 21:09 Pantoprazole Sodium (Protonix) 40 mg DAILYAC PO 01/09/19 07:30 01/09/19 07:58 Zolpidem Tartrate (Ambien) 5 mg PRN QHS PRN PO INSOMNIA 01/08/19 18:00 01/08/19 23:02 Atorvastatin Calcium (Lipitor) 10 mg QHS PO 01/08/19 21:00 01/08/19 21:10 Albuterol/ Ipratropium (Duoneb) 3 ml RTQID [facility] 01/08/19 20:00 01/09/19 07:46 Budesonide (Pulmicort) 0.5 mg RTBID [facility] 01/08/19 20:00 01/09/19 07:46 Aspirin (Children'S Aspirin) 81 mg DAILY PO 01/08/19 20:00 01/08/19 21:10 Finasteride (Proscar) 5 mg DAILY PO 01/08/19 20:00 01/08/19 21:09 Tamsulosin HCl (Flomax) 0.4 mg DAILY PO 01/08/19 20:00 01/08/19 21:09 Imaging: Imaging: CXR IMPRESSION: Lateral right upper and mid thorax opacity possibly due to pleural plaque or pleural parenchymal scarring. The superimposed on suspected chronic interstitial changes. Correlate with prior studies to exclude an underlying pleural-based mass or pneumonic infiltrate. Abd US FINDINGS: The liver is normal in size. No focal hepatic lesion is seen. There is suspected hepatic steatosis. The gallbladder is unremarkable. The common bile duct is normal in caliber. The right kidney is normal in size. There is a single right renal cyst measuring 4.4 cm. There is echogenic right renal parenchyma, possibly due to imaging technique or medical renal disease. The pancreas and inferior vena cava are unremarkable. IMPRESSION: 1. Slightly echogenic liver parenchyma. This may be due to imaging technique or steatosis. 2. Echogenic right kidney, also possibly due to technique or medical renal disease. 3. 4.4 cm right renal cyst. PE: GEN: NAD, up in chair HEENT: Atraumatic, PERRL LUNGS: CTAB HEART: RRR ABD: NABS, S/ND/NT EXTREMITY: No edema SKIN: No rashes, no jaundice NEURO/PSYCH: A & O 3, talkative - gets several phone calls from friends during interview A/P: A/P: Mid abdominal discomfort, nausea - resolved GERD, chronic dysphagia, allergic rhinitis CRC screen - none ?IBS Hepatic steatosis CAD w/ stent, h/o AVR - on Plavix and ASA NSAID use -- Okay to feed and consider discharge. Will request records from [facility] - can follow-up w/ Dr. Marion (says he doesn't want to go back to [facility]) as outpt to review these and discuss chronic symptoms - ?presbyesophagus Continue PPI QD for GERD and follow-up w/ ENT as planned. Consider screening colonoscopy - don't think he's interested. If pain recurs, consider HIDA. KEVEN BELLA Jan 09, 2019 09:41
[2019-01-09] MEDS: FINASTERIDE 5 MG TABLET. PO SCH (10:06)
[2019-01-09] MEDS: ASPIRIN CHEWABLE 81 MG TABLET. PO SCH (10:07)
[2019-01-09 11:00] VITALS: BP 128/70
--- NOTE | 2019-01-09 12:21 | PDOC ---
[employer] PROGRESS NOTE Chief Complaint Chief Complaint acute epigastric abd pain - resolved, no EKG changes. Troponin x3 negative TAVR 6 months ago, and stent 03/23. COPD History of Present Illness History of Present Illness 01/09/19 Pt seen and examined. Sitting in chair in no acute distress, pleasant and conversant. Reports no chest pain or abdominal pain today. Ready to go home. Discussed with nurse. Discussed with GI. Vitals/I&O Vitals/I&O: Vital Signs Date Time Temp Pulse Resp B/P (MAP) Pulse Ox O2 Delivery O2 Flow Rate FiO2 01/09/19 11:03 Room Air 01/09/19 11:00 98.5 87 128/70 (89) 91 98.5 01/08/19 23:11 20 I & O 01/08/19 01/08/19 01/09/19 15:00 23:00 07:00 Intake Total 400 ml 200 ml Balance 400 ml 200 ml Physical Exam General: Alert, Oriented X3, Cooperative, No acute distress Heart: Regular rate, Normal S1, Normal S2, Other (2/6 systolic murmur) Lungs: Clear Abdomen: Soft, No tenderness Extremities: No cyanosis, Other (trace LE edema) Skin: No breakdown, No significant lesion Labs Labs: Laboratory Tests Test 01/08/19 14:00 01/08/19 15:00 01/08/19 18:08 01/08/19 22:35 White Blood Count 9.0 x10^3/uL (4.0-11.0) Red Blood Count 4.61 x10^6/uL (4.30-5.70) Hemoglobin 15.2 g/dL (13.0-17.5) Hematocrit 44.2 % (39.0-53.0) Mean Corpuscular Volume 96 fL (79-100) Mean Corpuscular Hemoglobin 33 pg (25-35) Mean Corpuscular Hemoglobin Concent 34 g/dL (31-37) Red Cell Distribution Width 13.7 % (11.5-14.5) Platelet Count 159 x10^3/uL (140-400) Neutrophils (%) (Auto) 81 % (31-73) Lymphocytes (%) (Auto) 10 % (24-48) Monocytes (%) (Auto) 8 % (0-9) Eosinophils (%) (Auto) 1 % (0-3) Basophils (%) (Auto) 1 % (0-3) Neutrophils # (Auto) 7.3 x10^3/uL (1.8-7.7) Lymphocytes # (Auto) 0.9 x10^3/uL (1.0-4.8) Monocytes # (Auto) 0.7 x10^3/uL (0.0-1.1) Eosinophils # (Auto) 0.1 x10^3/uL (0.0-0.7) Basophils # (Auto) 0.1 x10^3/uL (0.0-0.2) Prothrombin Time 13.6 SEC (11.7-14.0) Prothromb Time International Ratio 1.1 (0.8-1.1) Sodium Level 140 mmol/L (136-145) Potassium Level 3.9 mmol/L (3.5-5.1) Chloride Level 103 mmol/L (98-107) Carbon Dioxide Level 23 mmol/L (21-32) Anion Gap 14 (6-14) Blood Urea Nitrogen 18 mg/dL (8-26) Creatinine 1.1 mg/dL (0.7-1.3) Estimated GFR (Cockcroft-Gault) 64.9 BUN/Creatinine Ratio 16 (6-20) Glucose Level 93 mg/dL (70-99) Calcium Level 9.1 mg/dL (8.5-10.1) Magnesium Level 1.8 mg/dL (1.8-2.4) Total Bilirubin 1.3 mg/dL (0.2-1.0) Aspartate Amino Transf (AST/SGOT) 37 U/L (15-37) Alanine Aminotransferase (ALT/SGPT) 28 U/L (16-63) Alkaline Phosphatase 112 U/L (46-116) Creatine Kinase 505 U/L (39-308) Troponin I Quantitative < 0.017 ng/mL (0.000-0.055) < 0.017 ng/mL (0.000-0.055) < 0.017 ng/mL (0.000-0.055) GX-Msp-S-Type Natriuretic Peptide 244 pg/mL (0-449) Total Protein 8.3 g/dL (6.4-8.2) Albumin 4.2 g/dL (3.4-5.0) Albumin/Globulin Ratio 1.0 (1.0-1.7) Lipase 148 U/L (73-393) Test 01/09/19 03:50 White Blood Count 5.6 x10^3/uL (4.0-11.0) Red Blood Count 4.30 x10^6/uL (4.30-5.70) Hemoglobin 14.2 g/dL (13.0-17.5) Hematocrit 40.9 % (39.0-53.0) Mean Corpuscular Volume 95 fL (79-100) Mean Corpuscular Hemoglobin 33 pg (25-35) Mean Corpuscular Hemoglobin Concent 35 g/dL (31-37) Red Cell Distribution Width 13.9 % (11.5-14.5) Platelet Count 143 x10^3/uL (140-400) Neutrophils (%) (Auto) 53 % (31-73) Lymphocytes (%) (Auto) 30 % (24-48) Monocytes (%) (Auto) 13 % (0-9) Eosinophils (%) (Auto) 4 % (0-3) Basophils (%) (Auto) 1 % (0-3) Neutrophils # (Auto) 3.0 x10^3/uL (1.8-7.7) Lymphocytes # (Auto) 1.6 x10^3/uL (1.0-4.8) Monocytes # (Auto) 0.7 x10^3/uL (0.0-1.1) Eosinophils # (Auto) 0.2 x10^3/uL (0.0-0.7) Basophils # (Auto) 0.0 x10^3/uL (0.0-0.2) Sodium Level 140 mmol/L (136-145) Potassium Level 3.9 mmol/L (3.5-5.1) Chloride Level 107 mmol/L (98-107) Carbon Dioxide Level 23 mmol/L (21-32) Anion Gap 10 (6-14) Blood Urea Nitrogen 19 mg/dL (8-26) Creatinine 1.1 mg/dL (0.7-1.3) Estimated GFR (Cockcroft-Gault) 64.9 BUN/Creatinine Ratio 17 (6-20) Glucose Level 91 mg/dL (70-99) Calcium Level 8.1 mg/dL (8.5-10.1) Total Bilirubin 0.8 mg/dL (0.2-1.0) Aspartate Amino Transf (AST/SGOT) 27 U/L (15-37) Alanine Aminotransferase (ALT/SGPT) 19 U/L (16-63) Alkaline Phosphatase 88 U/L (46-116) Total Protein 6.9 g/dL (6.4-8.2) Albumin 3.1 g/dL (3.4-5.0) Albumin/Globulin Ratio 0.8 (1.0-1.7) Triglycerides Level 71 mg/dL (0-150) Cholesterol Level 154 mg/dL (0-200) LDL Cholesterol, Calculated 86 mg/dL (0-100) VLDL Cholesterol, Calculated 14 mg/dL (0-40) Non-HDL Cholesterol Calculated 100 mg/dL (0-129) HDL Cholesterol 54 mg/dL (40-60) Cholesterol/HDL Ratio 2.9 Review of Systems Review of Systems: No chest pain today No abdominal pain today No N/V today Assessment and Plan Assessmemt and Plan Problems Medical Problems: (1) Acute chest pain Status: Acute A/P acute epigastric abd pain - resolved, no EKG changes. Troponin x3 negative TAVR 6 months ago, and stent 03/23. COPD Cardiac monitoring serial EKGs, enzymes CV and GI workup in progress hope to discharge when OK with consultants home meds DVT ppx Full code Comment Review of Relevant I have reviewed the following items shahnaz (where applicable) has been applied. Medications: Current Medications Medications (Trade) Dose Ordered Sig/Jean [place] Route PRN Reason Start Time Stop Time Status Last Admin Dose Admin Alprazolam (Xanax) 0.25 mg 1X ONCE PO 01/08/19 16:15 01/08/19 16:18 DC 01/08/19 18:18 Amlodipine Besylate (Norvasc) 5 mg DAILY PO 01/09/19 09:00 01/09/19 10:07 Vitamin D (Vitamin D3) 2,000 unit DAILY PO 01/09/19 09:00 01/09/19 10:08 Clopidogrel Bisulfate (Plavix) 75 mg DAILY PO 01/09/19 09:00 01/09/19 10:06 Montelukast Sodium (Singulair) 10 mg HS PO 01/08/19 21:00 01/08/19 21:09 Meloxicam (Mobic) 15 mg DAILY PO 01/09/19 09:00 01/09/19 10:08 Pantoprazole Sodium (Protonix) 40 mg DAILYAC PO 01/09/19 07:30 01/09/19 07:58 Zolpidem Tartrate (Ambien) 5 mg PRN QHS PRN PO INSOMNIA 01/08/19 18:00 01/08/19 23:02 Atorvastatin Calcium (Lipitor) 10 mg QHS PO 01/08/19 21:00 01/08/19 21:10 Albuterol/ Ipratropium (Duoneb) 3 ml RTQID NEB 01/08/19 20:00 01/09/19 11:03 Budesonide (Pulmicort) 0.5 mg RTBID NEB 01/08/19 20:00 01/09/19 07:46 Aspirin (Children'S Aspirin) 81 mg DAILY PO 01/08/19 20:00 01/09/19 10:07 Finasteride (Proscar) 5 mg DAILY PO 01/08/19 20:00 01/09/19 10:06 Tamsulosin HCl (Flomax) 0.4 mg DAILY PO 01/08/19 20:00 01/09/19 11:56 DC 01/08/19 21:09 TAE HUNT III DO Jan 09, 2019 12:21
--- NOTE | 2019-01-09 12:24 | NUR ---
SS following for discharge planning. SS reviewed pt chart. Pt is from home and is currently on room air. SS will continue to follow for discharge planning.
--- NOTE | 2019-01-09 19:35 | NUR ---
Discharge Note: MATTHEW ROBERTS Discharge instructions and discharge home medications reviewed with Patient and a copy given. All questions have been answered and understanding verbalized. 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 follow up with GI, contact info given for Dr. Marion. Discontinued lines and drains: IV removed, no lines present. Patient discharged to home, left with daughter in private vehicle.
--- NOTE | 2019-01-09 20:10 | DS ---
DATE OF DISCHARGE: 01/09/2019 ADMISSION DIAGNOSIS: Chest pain. DISCHARGE DIAGNOSES: Atypical chest pain, history of old aortic valve replacement, and history of coronary artery disease with stent in March of this year. CONSULTATIONS: GI and Cardiology. PROCEDURES: None. HOSPITAL COURSE: The patient is a pleasant middle-aged male who had a cardiac stent in March. He also has an old aortic valve replacement 6 months ago. Basically presented with some elevated troponin and chest pain. He was admitted. The above consults were obtained. His workup was negative. He looks great this morning. We discharged to home with close outpatient followup. DISPOSITION: Home. ACTIVITY: As tolerated. DIET: Low sodium. MEDICATIONS: Please see the MRAD. TOTAL TIME: 33 minutes. TAE HUNT DO DR: SALINA/gregoria JOB#: [id number] / [id number]
== END 2019-01-09 15:05 | disposition home or self-care (01) ==
LOC: ER 13:04 → 2 NORTH 14:18
PROVIDERS: ADMIT Internal Medicine; ATTEND Internal Medicine
DX: R07.9 Chest pain, unspecified (principal); R10.13 Epigastric pain; J44.9 Chronic obstructive pulmonary disease, unspecified; I25.10 Atherosclerotic heart disease of native coronary artery without angina pectoris; I10 Essential (primary) hypertension; E78.5 Hyperlipidemia, unspecified; Z87.891 Personal history of nicotine dependence
CPT/HCPCS: 36415; 71045; 76705; 80053; 80061; 82550; 83690; 83735; 83880; 84484; 85025; 85610; 93005; 94640; 94760; 99284; G0378; G0379; J7620; J7626

== ENCOUNTER → 2019-07-04 | Day surgery (SDC) | payer MEDICARE ==
[~2019-07-04] MED LIST: ACLI400A3 IH; AMLO5TAB10 PO; ASPI-630 PO; CHOL10003 PO; CLOP75TA PO; ESZO3TAB28 PO; FINA5TAB4 PO; FLUT12AE2 IH; FLUT1DIS3 IH; HYDROmorphone 2 MG/ML VIAL IV PRN; IV RINGERS,LACTATED 1000ML 1,000 ML IV SCH; LIDOCAINE 1% PF 2 ML VIAL. ID PRN; LIDOCAINE 2% PF 5 ML VIAL. ONE; MELO15TA23 PO; MONT10TA49 PO; MORPHINE SULFATE 2 MG/ML VIAL. IV PRN; ONDANSETRON PF 4 MG/2 ML VIAL. IV PRN; PANT20TA2 PO; PRAV40TA2 PO; PROCHLORPERAZINE 10 MG/2 ML VIAL. IV PRN; PROPOFOL 40 ML IV ONE; TAMS0.4C97 PO; UMEC62.5 IH; VENTOLIN HFA18 GM INH; ePHEDrine PF IN SALINE 50 MG/10 ML SYRINGE. IV ONE; fentaNYL PF VIAL 100 MCG/2 ML VIAL IV PRN
[2019-07-04 07:43] VITALS: BP 113/73
--- NOTE | 2019-07-04 07:57 | HP ---
ADMIT DATE: 07/04/2019 REFERRING PHYSICIAN: Dann Ma MD REASON: Dysphagia. HISTORY OF PRESENT ILLNESS: A 79-year-old male with past medical history significant for hypertension, hyperlipidemia and COPD, seen with dysphagia in lower esophagus, mainly for solids and occasionally with liquids, it is moderate in severity and worsening. He does not drink or smoke. Risk factors for reflux at this time, has been taking Protonix 40 mg daily, which has helped with reflux. Family history is significant for dysphagia with his sons, required dilatations. With continued symptoms, he is here today for further evaluation and care. PAST MEDICAL HISTORY: Dysphagia, hypertension, hyperlipidemia, COPD and arthritis. ALLERGIES: None. MEDICATIONS: Include albuterol, amlodipine, aspirin, cholecalciferol, Plavix, Lunesta, finasteride, Flovent, Advair, meloxicam, montelukast, pantoprazole, pravastatin, tamsulosin and Incruse. FAMILY HISTORY: Significant for colon polyps with his father. PAST SURGICAL HISTORY: Valve replacement. REVIEW OF SYSTEMS: Per records. PHYSICAL EXAMINATION: GENERAL: Reveals a well-nourished, well-developed male who is alert and cooperative, in mild distress. VITAL SIGNS: Temperature is 98.1, pulse 79 and respiratory rate is 20. LUNGS: Reveal decreased breath sounds. CARDIOVASCULAR: S1, S2 without S3, S4 or appreciable murmur. ABDOMEN: Reveals a soft abdomen, normal bowel sounds, without appreciable hepatosplenomegaly. EXTREMITIES: Reveals no cyanosis, clubbing or edema. IMPRESSION: Dysphagia, etiology is to be determined. Differential includes Schatzki's ring, presbyesophagus, malignancy, achalasia, eosinophilic esophagitis and Goldberg's. Plavix will be held for 24 hours. With presbyesophagus, dilatation may or may not be helpful if additional pathology was encountered. NATHALY TORRES MD DR: TIMOTHY/gregoria JOB#: [id number] / [id number]
== END ==
LOC: ENDOS 05:56
PROVIDERS: ATTEND Internal Medicine Gastroenterology
DX: R13.10 Dysphagia, unspecified (principal); K22.2 Esophageal obstruction; I10 Essential (primary) hypertension; E78.5 Hyperlipidemia, unspecified; J44.9 Chronic obstructive pulmonary disease, unspecified; Z72.89 Other problems related to lifestyle; Z87.39 Personal history of other diseases of the musculoskeletal system and connective tissue; Z98.890 Other specified postprocedural states
CPT/HCPCS: 43235; 43450; J2704; J3490

== ENCOUNTER 2020-08-12 23:34 | Emergency (ER) | payer MEDICARE, OTHER ==
[~2020-08-12] VITALS: Ht 182.9 cm; Wt 85.0 kg
[~2020-08-12 23:34] MED LIST changes: +AMLO-186 PO; -AMLO5TAB10 PO; -HYDROmorphone 2 MG/ML VIAL IV PRN; -IV RINGERS,LACTATED 1000ML 1,000 ML IV SCH; -LIDOCAINE 1% PF 2 ML VIAL. ID PRN; -LIDOCAINE 2% PF 5 ML VIAL. ONE; -MORPHINE SULFATE 2 MG/ML VIAL. IV PRN; -ONDANSETRON PF 4 MG/2 ML VIAL. IV PRN; -PROCHLORPERAZINE 10 MG/2 ML VIAL. IV PRN; -PROPOFOL 40 ML IV ONE; -ePHEDrine PF IN SALINE 50 MG/10 ML SYRINGE. IV ONE; -fentaNYL PF VIAL 100 MCG/2 ML VIAL IV PRN
[2020-08-13 00:01] VITALS: BP 132/68
--- NOTE | 2020-08-13 00:14 | PHYS DOC ---
Past Medical History Past Medical History: CAD, COPD, GERD, High Cholesterol Additional Past Medical Histor: BPH Additional Past Surgical Histo: VALVE REPLACEMENT Smoking Status: Former Smoker Alcohol Use: Rarely Drug Use: None General Adult EDM: Chief Complaint: UPPER EXTREMITY INJURY HPI: HPI: 80 yo M CAD, HTN, HLD, dysphagia, COPD, w/aortic valve replacement, presents the ED with complaints of bruising to the left forearm after patient was walking in the hallway just prior to arrival and tripped on his oxygen machine. Reports he landed forward on his left arm causing bruising and a large skin tear. Reports not hitting his head. Did not lose consciousness. Is on anticoagulants. Was not under the influence of any alcohol or drugs. Cannot recall last tetanus- vaccinated 3 to 4 years ago when he traveled to [place]. Review of Systems: Review of Systems: Constitutional: Denies fever or chills. [] Eyes: Denies change in visual acuity. [] HENT: Denies nasal congestion or sore throat. [] Respiratory: Denies cough or shortness of breath. [] Cardiovascular: Denies chest pain or edema. [] GI: Denies nausea, vomiting, : Denies dysuria or saddle anesthesia Musculoskeletal: Denies midline back pain or joint pain/deformity Integument: Denies blistering lesions or diaphoresis Neurologic: Denies headache, neck pain, focal weakness or sensory changes. [] Psychiatric: Denies depression or anxiety. [] Heart Score: C/O Chest Pain: No Risk Factors: Risk Factors: DM, Current or recent (<one month) smoker, HTN, HLP, family history of CAD, obesity. Risk Scores: Score 0 - 3: 2.5% MACE over next 6 weeks - Discharge Home Score 4 - 6: 20.3% MACE over next 6 weeks - Admit for Clinical Observation Score 7 - 10: 72.7% MACE over next 6 weeks - Early Invasive Strategies Allergies: Allergies: Allergies Coded Allergies Type Severity Reaction Last Updated Verified No Known Drug Allergies 07/04/19 No Physical Exam: PE: Constitutional: Well developed, well nourished, no acute distress, non-toxic a ppearance, obese abdomen-very phsyci HENT: Normocephalic, atraumatic, no signs of head trauma Eyes: PERRLA, EOMI, conjunctiva normal, no discharge. Neck: Normal range of motion, supple, Cardiovascular: S1/2 present, regular rhythm Lungs & Thorax: Speaking in full sentences, bilateral equal chest rise, no tachypnea or increased work of breathing Skin: Warm, dry, normal skin turgor, large area of ecchymosis approximately 12 x 8 6 cm over patient's distal left forearm with proximal skin avulsion over the ecchymosis, approximately 6 cm-gaping region < 0.5cm Back: No midline step offs or tenderness, no saddle anesthesia Extremities: No focal underlying bone/joint ttp over right left elbow/shoulder/wrist/hand, all LUE joint rom intact , no unilateral lower ext remity edema, equal radial pulses bl, Neurologic: Alert and oriented X 3, no focal deficits noted, sensory and motor of LUE intact Psychologic: Affect normal, judgement normal, mood normal- Nexus C-spine criteria are negative: There is no post midline tenderness, the patient is not intoxicated, there is a normal level of alertness, there are no focal neurologic deficits and there are no distracting injuries. EKG: EKG: [] Radiology/Procedures: Radiology/Procedures: [] Course & Med Decision Making: Course & Med Decision Making Pertinent Labs and Imaging studies reviewed. (See chart for details) Concern for accidental mechanical fall with skin avulsion and contusion to left forearm. Patient hemodynamically stable with no neurologic deficits. No signs of head trauma. Wound was irrigated by RN and Steri-Strips applied. Tetanus is updated. Will discharge home with strict ED return precautions were given for head injury, neurologic deficits, nausea, vomiting, or extremity pain. Encouraged urgent outpatient follow-up with PMD and wound care. Life- threatening processes were considered but are low suspicion at this time, given history, physical exam and ED workup. Pt was educated on all prescription medications and adverse effects. All patient's questions were answered and pt was stable at time of discharge. Life/limb-threatening differential includes but is not limited to, trauma (fracture, dislocation, laceration, compartment syndrome, tendon or ligament injury), neurovascular injury or deficitcva/tia, infection (osteomyelitis, abscess, cellulitis, septic arthritis, necrotizing fasciitis), deep vein thrombosis, renal/cardiac/liver disease, medication adverse effect, lymphedema/anasarca, vascular insufficiency or malignancy, I spoken with the patient and her caregivers. I explained the patient's condition, diagnoses and treatment plan based on the information available to me at this time. I have answered the patient and her caregiver's questions and addressed any concerns. The patient and her caregivers have a good understand ing of patient's diagnosis, condition and treatment plan as can be expected at this point. Vital signs have been stable. Patient's condition is stable and appropriate for discharge from the emergency department. Patient will pursue further outpatient evaluation with primary care physician or other designated or consulting physician as outlined in the discharge instructions. The patient and/or caregivers are agreeable to this plan of care and follow-up instructions have been explained in detail. The patient and/or caregivers have received these instructions in written form and have expressed an understanding of the discharge instructions. The patient and/or caregivers are aware that any significant change of condition or worsening of symptoms should prompt immediate return to this or the closest emergency department or call to 911. Melba Disclaimer: Draggilson Disclaimer: This electronic medical record was generated, in whole or in part, using a voice recognition dictation system. Departure Departure Impression: Primary Impression: Avulsion of skin of forearm Additional Impressions: Traumatic ecchymosis of left forearm Need for Tdap vaccination Disposition: 01 HOME / SELF CARE / HOMELESS Condition: STABLE Referrals: CHAD DUBOSE MD (PCP) follow up in 2-3 days for wound check - keep covered until cleared in 48-72 hours Patient Instructions: Deep Skin Avulsion, Fall Prevention and Home Safety, VIS, Tetanus, Diphtheria (Td); Tetanus, Diphtheria, Pertussis (Tdap) - CDC Additional Instructions: FOLLOW UP WITH WOUND CARE: For definitive management [facility] [address] [place] [address], [address] [place] [address] EMERGENCY DEPARTMENT GENERAL DISCHARGE INSTRUCTIONS Thank you for coming to [facility] Emergency Department (ED) today and trusting us with you care. We trust that you had a positive experience in our Emergency Department. If you wish to speak to the department management, you may call the Director at [phone]. YOUR FOLLOW UP INSTRUCTIONS ARE FOLLOWS: 1. Do you have a private Doctor? If you do not have a private doctor, please ask for a resource list of physicians or clinics that may be able to assist you with follow up care. 2. The Emergency Physicain has interpreted your x-rays. The X-Ray specialist will also review them. If there is a change in the findings, you will be notified in 48 hours when at all possible. 3. A lab test or culture has been done, your results will be reviewed and you will be notified if you need a change in treatment. ADDITIONAL INSTRUCTIONS AND INFORMATION: 1. Your care today has been supervised by a physician who is specially trained in emergency care. Many problems require more than one evaluation for a complete diagnosis and treatment. We recommend that you schedule your follow up appointment as recommended to ensure complete treatment of you illness or injury. If you are unable to obtain follow up care and continue to have a problem, or if your condition worsens, we recommend that you return to the ED. 2. We are not able to safely determine your condition over the phone nor are we able to give sound medical advice over the phone. For these safety reasons, if you call for medical advice we will ask you to come to the ED for further evaluation. 3. If you have any questions regarding these discharge instructions please call the ED at [phone]. SAFETY INFORMATION: In the interest of safety, wellness, and injury prevention; we encourage you to wear your sealbelt, if you smoke; quite smoking, and we encourage family to use a protective helmet for bicycling and other sporting events that present an increased risk for head injury. IF YOUR SYMPTOMS WORSEN OR NEW SYMPTOMS DEVELOP, OR YOU HAVE CONCERNS ABOUT YOUR CONDITION; OR IF YOUR CONDITION WORSENS WHILE YOU ARE WAITING FOR YOUR FOLLOW UP APPOINTMENT; EITHER CONTACT YOUR PRIMARY CARE DOCTOR, THE PHYSICIAN WHOSE NAME AND NUMBER YOU WERE GIVEN, OR RETURN TO THE ED IMMEDIATELY. PRINCE TRAN DO Aug 13, 2020 00:14
[2020-08-13] MEDS ORDERED: DIPH,PERTUSS(ACELL),TET VAC/PF 0.5 ML SYRINGE. VAX IM ONE (00:21)
== END 2020-08-13 00:26 | disposition home or self-care (01) ==
LOC: ER 23:34
DX: S50.12XA Contusion of left forearm, initial encounter (principal); J44.9 Chronic obstructive pulmonary disease, unspecified; K21.9 Gastro-esophageal reflux disease without esophagitis; E78.00 Pure hypercholesterolemia, unspecified; I25.10 Atherosclerotic heart disease of native coronary artery without angina pectoris; Z87.891 Personal history of nicotine dependence; W01.0XXA Fall on same level from slipping, tripping and stumbling without subsequent striking against object, initial encounter; Y93.01 Activity, walking, marching and hiking; Y92.89 Other specified places as the place of occurrence of the external cause; Y99.8 Other external cause status
CPT/HCPCS: 99283; 99284